=== PATIENT | male | born 1960 | race Caucasian/White ===

== ENCOUNTER 2018-04-04 12:51 | Emergency (ER) | payer BC ==
[~2018-04-04] VITALS: Ht 177.8 cm; Wt 115.0 kg
[2018-04-04 12:58] VITALS: BP 153/92; PULSE 78; RESP 16; TEMP 97.8; O2SAT 96
[2018-04-04] MEDS ORDERED: GABA100C4 PO (13:15)
[2018-04-04] MEDS ORDERED: HYDR-3366 PO (13:15)
[2018-04-04] MEDS ORDERED: AMLO5TAB2 PO (13:15)
[2018-04-04] MEDS ORDERED: CLON1TAB PO (13:15)
[2018-04-04 14:14] VITALS: BP 151/76; PULSE 67; RESP 18; O2SAT 99
--- NOTE | 2018-04-04 14:18 | PD ---
HPI . Arm pain Chief Complaint: Edema Time Seen by Provider: 13:09 Travel History International Travel<30 days: No Contact w/Intl Traveler<30days: No Traveled to known affect area: No History of Present Illness HPI Patient presents with chief complaint of pain and swelling of his left upper extremity. It seems that this is an ongoing problem. He reports that he is followed by pain management for this pain as well as aches and pains elsewhere in his body. He states that he does not believe that his pain management doctor knows what he is doing. He subsequently presented to us today for evaluation and treatment. There has been no injury. He rates his pain at 8/ 10. There are no modifying factors. There are no associated symptoms except for swelling. PFSH Past Medical History Anxiety: Yes Hypertension: Yes Neurologic: Yes (HERNIATED DISC: CERVICAL, MID AND LOW BACK) Influenza Vaccination: No ?: Not Past Surgical History Abdominal Surgery: Yes (DOUBLE HERNIA REPAIR) Social History Alcohol Use: Yes (OCCAS) Tobacco Use: No Substance Use: No Allergies-Medications (Allergen,Severity, Reaction): Coded Allergies: No Known Allergies (Unverified , 04/04/18) Reported Meds & Prescriptions Reported Meds & Active Scripts Active Reported [place] (Hydrocodone-Acetaminophen) 10-325 Mg Tab 1 Tab PO Q4H PRN Clonazepam 1 Mg Tab 1 Mg PO HS Gabapentin 100 Mg Cap 100 Mg PO BID Amlodipine (Amlodipine Besylate) 5 Mg Tab 5 Mg PO DAILY Review of Systems Except as stated in HPI: all other systems reviewed are Neg Physical Exam Narrative GENERAL: Awake and alert and in no acute distress. SKIN: Warm and dry. Normal color and turgor. HEAD: Normocephalic/atraumatic. EYES: Pupils are equal. Extraocular movements are intact. NECK: Normal range of motion. Supple. RESPIRATORY: Nonlabored respirations. Normal sats. CARDIOVASCULAR: RRR. Normal pulses and capillary refill of the left upper extremity. MUSCULOSKELETAL: Atraumatic. Normal muscle tone. No visible swelling of the left upper extremity. Positive muscular tenderness. NEUROLOGICAL: A and O 3. Nonfocal. PSYCHIATRIC: Appropriate mood and affect. Data Data Last Documented VS Vital Signs Date Time Temp Pulse Resp B/P (MAP) Pulse Ox O2 Delivery O2 Flow Rate FiO2 04/04/18 14:14 67 18 151/76 (101) 99 Room Air 04/04/18 12:58 97.8 Orders Orders Us Arm Venous Doppler (04/04/18 13:25) MDM Medical Decision Making Medical Screen Exam Complete: Yes Emergency Medical Condition: Yes Differential Diagnosis Differential diagnosis of arm pain includes but is not limited to ACS, radiculopathy, peripheral neuropathy, myalgia, trauma, peripheral vascular disease, diabetic neuropathy Narrative Course This patient presents with a chief complaint of pain and swelling of his left upper extremity. There is no appreciable swelling of the left upper extremity. The skin has normal color. He has normal distal pulses and capillary refill. He does have muscular tenderness. He reports that he is under the care of a pain management doctor for this pain as well as for other aches and pains. I have ordered an ultrasound to rule out DVT. Assuming this is negative, he is stable for continued outpatient management of this chronic problem. Sachin khoury has been queried and reviewed. He is prescribed [place] 10 mg tablets # 84 per 4 weeks. He has been getting this prescription consistently for at least the past year. The prescription has been written by 3 separate physicians in 3 separate cities but have all been filled at the same pharmacy. Last Impressions Upper Extremity Ultrasound 04/04/18 1325 Signed Impressions: CONCLUSION: No left upper extremity venous thrombosis is identified. Diagnosis Primary Impression: Left arm pain Patient Instructions: Chronic Pain (DC), General Instructions Disposition: 01 DISCHARGE HOME Condition: Stable Henny Dickson MD Apr 04, 2018 14:18
--- NOTE | 2018-04-04 14:40 | RADRPT ---
EXAM DATE: 04/04/2018 2:34 PM EDT AGE/SEX: 57 years / Male INDICATIONS: Left arm pain. CLINICAL DATA: This is the patient's initial encounter. Patient reports that signs and symptoms have been present for 3 months and indicates a pain score of 8/10. MEDICAL/SURGICAL HISTORY: Non-responsive. Back and neck problems. . Hernia repair. COMPARISON: No prior [facility] exams available for comparison. FINDINGS: There is spontaneous flow documented in the brachial, basilic, cephalic, axillary, and subclavian vei ns. The vessels are compressible and augmentation response is documented. No filling defects are se en. The flow is phasic with respiration. Direction of flow in the jugular vein is caudal. CONCLUSION: No left upper extremity venous thrombosis is identified. Electronically signed by: Presley Nascimento MD 04/04/2018 2:39 PM EDT
== END 2018-04-04 15:00 | disposition home or self-care (01) ==
LOC: PHED 12:51
DX: M79.602 Pain in left arm (principal); F41.9 Anxiety disorder, unspecified; I10 Essential (primary) hypertension
CPT/HCPCS: 93971; 99284